=== PATIENT | female | born 1965 | race Caucasian/White ===

== ENCOUNTER 2016-06-16 14:56 | Emergency (ER) | payer SELFPAY ==
[2016-06-16 15:24] LABS: #Basophils 0.2 thou/uL (0.0-0.2); #Eosinphils 0.2 thou/uL (0.0-0.7); #Lymphocytes 3.5 thou/uL (1.20-3.40); #Monocytes 0.5 thou/uL (0.11-0.59); #Neutrophils 4.8 thou/uL (1.40-6.50); %Basophils 1.7 % (0.0-1.0); %Lymphocytes 38.2 % (21.0-51.0); %Monocytes 5.4 % (0.0-10.0); %Neutrophils 52.7 % (42.0-75.0); Hemoglobin 13.5 g/dL (12.0-16.0); Mean Corpuscular HGB CONC 35.4 g/dL (32.0-36.0); Mean Corpuscular Volume 84.9 fl (81.0-99.0); Mean Platelet Volume 7.2 fL (7.4-10.4); Platelet Count 347 thou/uL (130-400); RBC Distribution Width 12.5 % (11.5-14.5); White Blood Cell (WBC) Count 9.2 thou/uL (4.8-10.8)
[2016-06-16 15:36] LABS: ALT (SGPT) 17 U/L (8-55); AST (SGOT) 21 U/L (5-34); Alkaline Phosphatase 49 U/L (40-150); Anion Gap 19 mmol/L (10-20); BUN (Urea Nitrogen) 26 mg/dL (7.0-18.7); Bilirubin, Total 0.2 mg/dL (0.2-1.2); Calc. Creatinine Clearance 0 mL/min (70-130); Calcium 8.9 mg/dL (7.8-10.44); Carbon Dioxide 20 mmol/L (22-29); Chloride 104 mmol/L (98-107); Estimated GFR-MDRD 56; Globulin 3.9 g/dL (2.4-3.5); Glucose 215 mg/dL (70-105); Potassium 4.4 mmol/L (3.5-5.1); Protein, Total 7.9 g/dL (6.0-8.3); Sodium 139 mmol/L (136-145)
[2016-06-16 15:38] LABS: CKMB 1.9 ng/mL (0-6.6); Troponin I Less than 0.010 ng/mL (< 0.028)
[2016-06-16] MEDS ORDERED: Nitroglycerin 0.4 MG TAB (25 Tab Bottle) ONE (16:25)
[2016-06-16] MEDS ORDERED: Nitroglycerin 2% Ointment 1 INCH/1 GM Packet ONE (16:41)
[2016-06-16] MEDS ORDERED: Acetaminophen 325 MG TAB ONE (16:41)
--- NOTE | 2016-06-16 20:48 | RAD ---
PORTABLE CHEST 06/16/16 An AP portable film at 1521 is compared with a 01/21/14 study. There has been no adverse interval change. The heart is normal in size and the lungs are clear. No i nfiltrate, effusion, or vascular congestion was seen. IMPRESSION: No acute thoracic finding. POS: HOME
== END 2016-06-16 17:52 | disposition short-term general hospital (02) ==
LOC: BURERS 14:56
DX: R07.9 Chest pain, unspecified (principal); E11.9 Type 2 diabetes mellitus without complications; I10 Essential (primary) hypertension; E78.5 Hyperlipidemia, unspecified; Z87.891 Personal history of nicotine dependence; Z79.4 Long term (current) use of insulin; Z79.899 Other long term (current) drug therapy
CPT/HCPCS: 71010; 80053; 82553; 83880; 84484; 85025; 85379; 93005

== ENCOUNTER 2019-06-13 09:24 | Emergency (ER) | payer SELFPAY, OTHER ==
[2019-06-13] MEDS ORDERED: traMADol HCl 50 MG TAB ONE (10:05)
--- NOTE | 2019-06-14 07:31 | RAD ---
LEFT FOOT 3 VIEWS: Date: 06/13/2019 No fracture was seen. No bony erosions or calcifications seen around the first MTP joint. There does appear to be some soft tissue swelling medially here. Of course, gout or similar entities would be a consideration. There is no periosteal reaction in the bones. A calcaneal spur was noted. IMPRESSION: Mild soft tissue swelling near the first MTP joint. POS: HOME
== END 2019-06-13 10:40 | disposition home or self-care (01) ==
LOC: BURERS 09:24
DX: M10.9 Gout, unspecified (principal); M19.90 Unspecified osteoarthritis, unspecified site; E11.9 Type 2 diabetes mellitus without complications; I10 Essential (primary) hypertension; E78.5 Hyperlipidemia, unspecified; Z87.891 Personal history of nicotine dependence

== ENCOUNTER 2020-01-27 17:28 | Emergency (ER) | payer SELFPAY ==
[2020-01-27 17:58] LABS: #Basophils 0.2 thou/uL (0.0-0.2); #Eosinphils 0.2 thou/uL (0.0-0.7); #Lymphocytes 4.4 thou/uL (1.20-3.40); #Monocytes 0.6 thou/uL (0.11-0.59); #Neutrophils 4.6 thou/uL (1.40-6.50); %Basophils 1.6 % (0.0-1.0); %Lymphocytes 43.9 % (21.0-51.0); %Monocytes 6.2 % (0.0-10.0); %Neutrophils 46.2 % (42.0-75.0); Hemoglobin 12.1 g/dL (12.0-16.0); Mean Corpuscular HGB CONC 32.8 g/dL (32.0-36.0); Mean Corpuscular Hemoglobin 28.4 pg (27.0-31.0); Mean Corpuscular Volume 86.6 fL (78.0-98.0); Mean Platelet Volume 6.4 fL (7.4-10.4); Platelet Count 348 thou/uL (130-400); RBC Distribution Width 13.5 % (11.5-14.5); Red Blood Cell (RBC) Count 4.27 mill/uL (4.20-5.40)
[2020-01-27 18:17] LABS: ALT (SGPT) 24 U/L (8-55); AST (SGOT) 24 U/L (5-34); Albumin 4.3 g/dL (3.5-5.0); Alkaline Phosphatase 48 U/L (40-110); Anion Gap 19 mmol/L (10-20); BUN (Urea Nitrogen) 29 mg/dL (9.8-20.1); Bilirubin, Total 0.2 mg/dL (0.2-1.2); Calc. Creatinine Clearance 0 mL/min (70-130); Calcium 9.1 mg/dL (7.8-10.44); Carbon Dioxide 20 mmol/L (22-29); Chloride 103 mmol/L (98-107); Glucose 124 mg/dL (70-105); Potassium 5.2 mmol/L (3.5-5.1); Protein, Total 8.3 g/dL (6.0-8.3); Sodium 137 mmol/L (136-145)
--- NOTE | 2020-01-27 20:03 | RAD ---
PORTABLE CHEST: 01/27/20 Comparison is made with the 06/16/16 study. An AP portable film at 1843 shows a normal sized heart and clear lungs. No acute infiltrate or effusion was seen. There is no vascular congestion or edema. The trachea is midline. IMPRESSION: No acute thoracic finding. POS: HOME
--- NOTE | 2020-01-27 20:20 | CT ---
CT ANGIO OF THE CHEST AND ABDOMEN (AORTIC DISSECTION PROTOCOL) 01/27/[address] of the chest and abdomen was done after a bolus of IV contrast. MIP reconstructions in vari ous planes were then obtained. There is no sign of aortic dissection, aneurysm, or significant aortic narrowing. The ascending aorta is 3.6 cm wide and the remainder of the aorta is somewhat less. Minor arteriosclerotic change is see n within the lower aorta. The celiac, SMA, and TERRENCE all fill normally. There may be slight narrowing o f the left renal artery at its origin. The right renal artery was unremarkable in appearance. Both co mmon iliac arteries fill, as do each of the common iliac arteries. CT of the thorax showed no mediastinal mass or adenopathy. Blood flow was seen in both coronary arter ies. There is no pericardial effusion. The lungs are clear. No infiltrate or effusion was evident. The liver, spleen, pancreas, gallbladder, adrenal glands, and each kidney were unremarkable in appear ance. The liver is mildly generous in size. The visible bowel shows no dilation or wall thickening. The appendix was identified and appears normal. There is no free air or free fluid evident. A very mi nor fat filled umbilical hernia was detected. IMPRESSION: 1. No evidence of aortic dissection or aneurysm. 2. Borderline hepatic size. Preliminary findings called to Dr. Bassett at 1950 on 01/27/20. POS: HOME
[2020-01-27] MEDS ORDERED: Aspirin Chewable 81 MG TAB ONE (20:22)
== END 2020-01-27 21:00 | disposition home or self-care (01) ==
LOC: BURERS 17:28
DX: I10 Essential (primary) hypertension (principal); R07.9 Chest pain, unspecified; E11.9 Type 2 diabetes mellitus without complications; E78.5 Hyperlipidemia, unspecified; Z87.891 Personal history of nicotine dependence; Z79.84 Long term (current) use of oral hypoglycemic drugs; Z79.899 Other long term (current) drug therapy
CPT/HCPCS: 36415; 71045; 71275; 74174; 80053; 83880; 84484; 85025; 93005

== ENCOUNTER 2020-09-23 19:29 | Emergency (ER) | payer SELFPAY ==
[2020-09-24 21:28] LABS: SARS-CoV-2 PCR by NAA DETECTED (NotDetected)
== END 2020-09-23 20:20 | disposition home or self-care (01) ==
LOC: BURERS 19:29
DX: U07.1 COVID-19 (principal); E11.9 Type 2 diabetes mellitus without complications; I10 Essential (primary) hypertension; E78.5 Hyperlipidemia, unspecified; Z87.891 Personal history of nicotine dependence
CPT/HCPCS: 99283; U0003; U0005

== ENCOUNTER 2021-10-20 20:20 | Emergency (ER) | payer SELFPAY ==
[2021-10-20 21:17] LABS: #Basophils 0.1 thou/uL (0.0-0.2); #Eosinphils 0.2 thou/uL (0.0-0.7); #Lymphocytes 4.7 thou/uL (1.20-3.40); #Monocytes 0.6 thou/uL (0.11-0.59); #Neutrophils 4.5 thou/uL (1.40-6.50); %Basophils 1.3 % (0.0-1.0); %Eosinophils 1.7 % (0.0-10.0); %Lymphocytes 46.7 % (21.0-51.0); %Monocytes 6.3 % (0.0-10.0); %Neutrophils 44.1 % (42.0-75.0); Hemoglobin 11.5 g/dL (12.0-16.0); Mean Corpuscular HGB CONC 33.6 g/dL (32.0-36.0); Mean Corpuscular Hemoglobin 28.8 pg (27.0-31.0); Mean Corpuscular Volume 85.7 fL (78.0-98.0); Mean Platelet Volume 6.2 fL (7.4-10.4); Platelet Count 348 thou/uL (130-400); RBC Distribution Width 12.5 % (11.5-14.5); Red Blood Cell (RBC) Count 3.99 mill/uL (4.20-5.40); White Blood Cell (WBC) Count 10.1 thou/uL (4.8-10.8)
[2021-10-20 21:31] LABS: ALT (SGPT) 14 U/L (8-55); AST (SGOT) 13 U/L (5-34); Albumin 4.2 g/dL (3.5-5.0); Alkaline Phosphatase 54 U/L (40-110); Anion Gap 16 mmol/L (10-20); BUN (Urea Nitrogen) 36 mg/dL (9.8-20.1); Bilirubin, Total 0.3 mg/dL (0.2-1.2); Calc. Creatinine Clearance 0 mL/min (70-130); Calcium 10.3 mg/dL (7.8-10.44); Carbon Dioxide 26 mmol/L (22-29); Chloride 99 mmol/L (98-107); Estimated GFR 41; Globulin 3.5 g/dL (2.4-3.5); Glucose 203 mg/dL (70-105); Potassium 3.9 mmol/L (3.5-5.1); Protein, Total 7.7 g/dL (6.0-8.3); Sodium 137 mmol/L (136-145)
== END 2021-10-20 21:55 | disposition home or self-care (01) ==
LOC: BURERS 20:20
DX: R06.4 Hyperventilation (principal); E11.9 Type 2 diabetes mellitus without complications; I10 Essential (primary) hypertension; Z87.891 Personal history of nicotine dependence; Z79.84 Long term (current) use of oral hypoglycemic drugs; Z79.899 Other long term (current) drug therapy
CPT/HCPCS: 36415; 71045; 80053; 84484; 85025; 93005; 94760

== ENCOUNTER 2022-04-23 15:10 | Emergency (ER) | payer SELFPAY ==
[2022-04-23 15:58] LABS: #Basophils 0.1 thou/uL (0.0-0.2); #Eosinphils 0.2 thou/uL (0.0-0.7); #Monocytes 0.8 thou/uL (0.11-0.59); #Neutrophils 7.6 thou/uL (1.40-6.50); %Basophils 1.2 % (0.0-1.0); %Eosinophils 1.5 % (0.0-10.0); %Lymphocytes 31.2 % (21.0-51.0); %Monocytes 6.3 % (0.0-10.0); %Neutrophils 59.9 % (42.0-75.0); Hemoglobin 12.1 g/dL (12.0-16.0); Mean Corpuscular HGB CONC 34.7 g/dL (32.0-36.0); Mean Corpuscular Hemoglobin 30.2 pg (27.0-31.0); Mean Corpuscular Volume 86.9 fl (78.0-98.0); Platelet Count 375 10x3/uL (130-400); RBC Distribution Width 12.4 % (11.5-14.5); Red Blood Cell (RBC) Count 4.01 mill/uL (4.20-5.40); White Blood Cell (WBC) Count 12.7 10x3/uL (4.8-10.8)
[2022-04-23 16:17] LABS: ALT (SGPT) 14 U/L (8-55); AST (SGOT) 11 U/L (5-34); Albumin 4.4 g/dL (3.5-5.0); Alkaline Phosphatase 58 U/L (40-110); Anion Gap 16 mmol/L (10-20); BUN (Urea Nitrogen) 33 mg/dL (9.8-20.1); Bilirubin, Total 0.3 mg/dL (0.2-1.2); Calc. Creatinine Clearance 0 mL/min (70-130); Calcium 9.3 mg/dL (7.8-10.44); Carbon Dioxide 22 mmol/L (22-29); Chloride 104 mmol/L (98-107); Estimated GFR 46; Globulin 3.5 g/dL (2.4-3.5); Glucose 174 mg/dL (70-105); Potassium 4.1 mmol/L (3.5-5.1); Protein, Total 7.9 g/dL (6.0-8.3); Sodium 138 mmol/L (136-145)
[2022-04-23 16:25] LABS: Bilirubin Negative (Negative); Blood, Urine Trace (Negative); Clarity Cloudy (Clear); Glucose, Urine (Dipstick) Negative (Negative); Ketone, Urine Trace mg/dL (Negative); Leukocyte Negative (Negative); Nitrite Negative (Negative); Protein, Urine (Dipstick) 100 mg/dL (Neg-Trace); Specific Gravity, Urine 1.025 (1.005-1.030); Urobilinogen 0.2 mg/dL (Less than 2); pH, Urine 5.5 (5.0-9.0)
[2022-04-23 16:31] LABS: Bacteria/HPF 2+ HPF (None Seen); RBC/HPF 0-3 HPF (0-3); WBC/HPF 0-3 HPF (0-3)
== END 2022-04-23 17:50 | disposition home or self-care (01) ==
LOC: BURERS 15:10
DX: E11.9 Type 2 diabetes mellitus without complications (principal); I10 Essential (primary) hypertension; E78.5 Hyperlipidemia, unspecified; M19.90 Unspecified osteoarthritis, unspecified site; Z87.891 Personal history of nicotine dependence; Z79.899 Other long term (current) drug therapy; Z79.84 Long term (current) use of oral hypoglycemic drugs; Z79.4 Long term (current) use of insulin; Z79.85 Long-term (current) use of injectable non-insulin antidiabetic drugs
CPT/HCPCS: 36415; 70450; 71045; 80053; 81003; 81015; 84484; 85025; 85610; 85730; 87804; 93005

== ENCOUNTER 2023-06-15 18:02 | Emergency (ER) | payer SELFPAY ==
[2023-06-15] MEDS ORDERED: Benzonatate 100 MG CAP ONE (18:27)
== END 2023-06-15 18:59 | disposition home or self-care (01) ==
LOC: BURERS 18:02
DX: J06.9 Acute upper respiratory infection, unspecified (principal); R09.81 Nasal congestion; I12.9 Hypertensive chronic kidney disease with stage 1 through stage 4 chronic kidney disease, or unspecified chronic kidney disease; N18.9 Chronic kidney disease, unspecified; Z87.891 Personal history of nicotine dependence
CPT/HCPCS: 71046